=== PATIENT | female | born 1960 | race Caucasian/White ===

== ENCOUNTER → 2016-10-25 | Outpatient (CLI) | payer OTHER, BC ==
[~2016-10-25] MED LIST: ACET500C7 PO; ALBU8.5H3 INH; ARTICHOKE EXTRACT PO; BETA2500 PO; BILB30CA2 PO; CIPR500T3 PO; CYAN1TAB29 SL; DHA OMEGA PEG; FEXO180T72 PO; GRAP50CA3 PO; HORS300C PO; IMMUNE DEFENSE PO; LUTE1CAP3 PO; MAGN1POW15 PO; MISTLETOE PO; OLOP5DRO EACHEYE; OMEG1CAP34 PO; ONDA4TAB10 PO; OXYC-302 PO; QUER1POW PO; RESV100C PO; SAW PALMETTO PO; SELE200T2 PO; TURM500C7 PO; ZINC25CA PO; [UNRECOGNIZED DRUG - OTHER] PO; [UNRECOGNIZED DRUG - OTHER] PO; [UNRECOGNIZED DRUG - OTHER] PO; [UNRECOGNIZED DRUG - OTHER] PO; [UNRECOGNIZED DRUG - OTHER] PO; adrenal support PO; allergy drops SL; green tea extract PO; vitamin b-6 PO
== END | disposition home or self-care (01) ==
LOC: STAR 14:30
PROVIDERS: ATTEND Plastic Surgery
DX: Z01.818 Encounter for other preprocedural examination (principal); C50.911 Malignant neoplasm of unspecified site of right female breast; N65.0 Deformity of reconstructed breast; T85.44XS Capsular contracture of breast implant, sequela; Z85.3 Personal history of malignant neoplasm of breast
CPT/HCPCS: 93005

== ENCOUNTER 2016-10-30 12:21 | Inpatient (IN) | payer OTHER, BC ==
[~2016-10-30] VITALS: Ht 149.9 cm; Wt 53.7 kg
[~2016-10-30 12:21] MED LIST changes: +BACITRACIN 50,000 UNIT ONE; +BUPIVACAINE/PF-EPI 0.25% 1:200K ONE; +CEFAZOLIN 1,000 MG ONE; +GENTAMICIN 80 MG/2 ML ONE; +HEPARIN 5,000 UNITS/ML, 1ML ONE; +LIDOCAINE/MPF 2%-EPI 1:200K, 20 ML ONE; +PAPAVERINE 30 MG/ML, 2ML ONE; +PROTAMINE SULFATE 10 MG/ML, 5ML ONE; +ROPivacaine/PF 0.2%, 10 ML ONE
[2016-10-30 12:53] VITALS: BP 127/85
[2016-10-30] MEDS ORDERED: HYDROmorphone 1 MG/ML, 1ML ONE (13:01)
[2016-10-30] MEDS ORDERED: KETAMINE 10 MG/ML, 20ML ONE (13:01)
[2016-10-30] MEDS ORDERED: MIDAZOLAM 1 MG/ML, 2ML ONE (13:01)
[2016-10-30] MEDS ORDERED: FENTANYL PF 250 MCG/5ML ONE (13:01)
[2016-10-30] MEDS ORDERED: LACTATED RINGERS 1,000 ML IV SCH (13:13)
[2016-10-30] MEDS ORDERED: SODIUM BICARBONATE 1 MEQ/ML, 50ML VIAL ONE (13:29)
[2016-10-30] MEDS ORDERED: LIDOCAINE-MPF 2% ,5ML ONE (13:29)
[2016-10-30] MEDS ORDERED: EPINEPHRINE 1 MG/ML, 1ML ONE (13:30)
[2016-10-30] MEDS ORDERED: ROPIvacaine/PF 0.5%, 20 ML ONE (14:15)
[2016-10-30] MEDS ORDERED: CEFAZOLIN 1,000 MG ONE (14:42)
[2016-10-30] MEDS ORDERED: DEXAMETHASONE 4 MG/ML, 1ML ONE (14:42)
[2016-10-30] MEDS ORDERED: ONDANSETRON 2MG/ML, 2ML ONE (14:42)
[2016-10-30] MEDS ORDERED: PHENYLEPHRINE 10 MG/ML ONE (14:42)
[2016-10-30] MEDS ORDERED: PROPOFOL 10 MG/ML, 50ML ONE (14:42)
[2016-10-30] MEDS ORDERED: ROCURONIUM 10 MG/ML ONE (14:42)
[2016-10-30] MEDS ORDERED: PROPOFOL 10 MG/ML, 20ML ONE (14:42)
[2016-10-30] MEDS ORDERED: SUGAMMADEX 200 MG/2 ML IVPush ONE (15:30)
[2016-10-30] MEDS ORDERED: BUPIVACAINE/PF-EPI 0.25% 1:200K ONE (16:02)
[2016-10-30] MEDS ORDERED: hydrALAzine 20 MG/ML, 1ML IV PRN (16:30)
[2016-10-30] MEDS ORDERED: LABETALOL 5MG/ML, 20ML IV PRN (16:30)
[2016-10-30] MEDS ORDERED: MIDAZOLAM 1 MG/ML, 2ML IV PRN (16:30)
[2016-10-30] MEDS ORDERED: MEPERIDINE/PF 25MG/0.5ML IVPush PRN (16:30)
[2016-10-30] MEDS ORDERED: PROMETHAZINE 25 MG/ML, 1ML IV PRN (16:30)
[2016-10-30] MEDS ORDERED: EPHEDRINE 50 MG/ML, 1ML IVPush PRN (16:30)
[2016-10-30] MEDS ORDERED: ALBUTEROL/IPRATROPIUM 2.5MG/0.5MG, 3 ML NPPB PRN (16:30)
[2016-10-30] MEDS ORDERED: ACETAMINOPHEN 325 MG TABLET PO PRN ×2 (16:30→22:30)
[2016-10-30] MEDS ORDERED: ONDANSETRON 2MG/ML, 2ML IVPush PRN (16:30)
[2016-10-30] MEDS ORDERED: METOCLOPRAMIDE 5 MG/ML, 2ML IV PRN (16:30)
[2016-10-30] MEDS ORDERED: OXYcodone 5 MG/5 ML ORAL.SOL UDC ONE ×2 (19:04→19:52)
[2016-10-30] MEDS: OXYcodone 5 MG/5 ML ORAL.SOL UDC PO PRN ×2 (19:05→19:54)
[2016-10-30] MEDS ORDERED: HYDROmorphone 2 MG/ML, 1ML ONE (19:22)
[2016-10-30] MEDS: HYDROmorphone 1 MG/ML, 1ML IV PRN ×3 (19:25→19:40)
[2016-10-30] MEDS: FENTANYL PF 100 MCG/2ML IV PRN ×2 (19:55→20:15)
[2016-10-30] MEDS ORDERED: ONDANSETRON 2MG/ML, 2ML IV PRN (22:30)
[2016-10-30] MEDS ORDERED: ENOXAPARIN 40 MG/0.4 ML SQ SCH (22:30)
[2016-10-30] MEDS ORDERED: LORazepam 2 MG/ML, 1ML IV PRN (22:30)
[2016-10-30] MEDS ORDERED: ACETAMINOPHEN 650 MG SUPP PR PRN (22:30)
[2016-10-30] MEDS ORDERED: ALBUTEROL SULFATE 2.5 MG/3 ML HHN PRN (22:30)
[2016-10-30] MEDS ORDERED: LORazepam 1MG TABLET PO PRN (22:30)
[2016-10-30] MEDS ORDERED: HYDROmorphone 1 MG/ML, 1ML IV PRN (22:30)
[2016-10-30] MEDS ORDERED: DIPHENHYDRAMINE 25 MG CAPSULE PO PRN (22:30)
[2016-10-30] MEDS ORDERED: DIPHENHYDRAMINE 50 MG/ML, 1ML IV PRN (22:30)
[2016-10-30] MEDS: OXYcodone/APAP 5/325MG TABLET PO PRN ×2 (23:03→23:32)
[2016-10-30] MEDS: CIPROFLOXACIN 500 MG TABLET PO SCH (23:04)
[2016-10-30] MEDS: CEFAZOLIN PMX 1GM/50ML 50 ML IVPB SCH (23:05)
[2016-10-30] MEDS: D5%-LACTATED RINGERS 1,000 ML IV SCH (23:06)
[2016-10-30 23:50] VITALS: BP 110/74
[2016-10-31 01:58] VITALS: BP 106/67
[2016-10-31 02:00] VITALS: BP 106/67
[2016-10-31] MEDS: OXYcodone/APAP 5/325MG TABLET PO PRN ×2 (04:26→09:43)
[2016-10-31 05:28] VITALS: BP 103/67
[2016-10-31 05:29] VITALS: BP 103/67
[2016-10-31 07:32] VITALS: BP 100/69
[2016-10-31 07:33] VITALS: BP 100/69
[2016-10-31] MEDS: CEFAZOLIN PMX 1GM/50ML 50 ML IVPB SCH (07:41)
[2016-10-31] MEDS: D5%-LACTATED RINGERS 1,000 ML IV SCH (08:30)
[2016-10-31] MEDS ORDERED: DOCUSATE 100 MG CAPSULE PO SCH (09:00)
[2016-10-31] MEDS: CIPROFLOXACIN 500 MG TABLET PO SCH (09:00)
== END 2016-10-31 13:00 | disposition home or self-care (01) | DRG 581 ==
LOC: ORIP 12:21 → EDSTATUS 14:00 → 4NOR 14:14 → DCLOUNGE 10-31 12:20
PROVIDERS: ADMIT Plastic Surgery; ATTEND Plastic Surgery
PROC: 0HPU0NZ Removal of Tissue Expander from Left Breast, Open Approach (ICD-10-PCS; 2016-10-30)
PROC: 0HRV0JZ Replacement of Bilateral Breast with Synthetic Substitute, Open Approach (ICD-10-PCS; 2016-10-30)
PROC: 0HPT0NZ Removal of Tissue Expander from Right Breast, Open Approach (ICD-10-PCS; 2016-10-30)
PROC: 0JX60ZZ Transfer Chest Subcutaneous Tissue and Fascia, Open Approach (ICD-10-PCS; principal; 2016-10-30 14:00)
PROC: 0KXF0ZZ Transfer Right Trunk Muscle, Open Approach (ICD-10-PCS; 2016-10-30 14:00)
DX: T85.44XA Capsular contracture of breast implant, initial encounter (principal); J45.909 Unspecified asthma, uncomplicated; Z85.3 Personal history of malignant neoplasm of breast; Z92.3 Personal history of irradiation
CPT/HCPCS: C1789; J0171; J0690; J1100; J1170; J1644; J1650; J2250; J2405; J2704; J2720; J2795; J3010; J3490; J1580; J2370; J2440; J7120; J7121

== ENCOUNTER → 2017-01-24 | Outpatient (CLI) | payer OTHER, BC ==
[~2017-01-24] MED LIST changes: -BACITRACIN 50,000 UNIT ONE; -BUPIVACAINE/PF-EPI 0.25% 1:200K ONE; -CEFAZOLIN 1,000 MG ONE; -GENTAMICIN 80 MG/2 ML ONE; -HEPARIN 5,000 UNITS/ML, 1ML ONE; -LIDOCAINE/MPF 2%-EPI 1:200K, 20 ML ONE; -PAPAVERINE 30 MG/ML, 2ML ONE; -PROTAMINE SULFATE 10 MG/ML, 5ML ONE; -ROPivacaine/PF 0.2%, 10 ML ONE
== END | disposition home or self-care (01) ==
LOC: ROC 09:56
PROVIDERS: ATTEND Radiology Radiation Oncology
DX: C50.211 Malignant neoplasm of upper-inner quadrant of right female breast (principal)
CPT/HCPCS: 99212; G0463

== ENCOUNTER → 2017-07-24 | Outpatient (CLI) | payer OTHER, BC ==
[~2017-07-24] MED LIST changes: -ALBU8.5H3 INH; +ALBU8.5H8 INH; +SELE200T17 PO; -SELE200T2 PO
== END | disposition home or self-care (01) ==
LOC: ROC 08:21
PROVIDERS: ATTEND Radiology Radiation Oncology
DX: C50.911 Malignant neoplasm of unspecified site of right female breast (principal)
CPT/HCPCS: 99213; G0463

== ENCOUNTER → 2018-01-08 | Outpatient (CLI) | payer OTHER, BC | END | disposition home or self-care (01) | LOC: ROC 08:03 | PROVIDERS: ATTEND Radiology Radiation Oncology | DX: C50.211 Malignant neoplasm of upper-inner quadrant of right female breast (principal) | CPT/HCPCS: 99212; G0463 ==

== ENCOUNTER 2018-06-24 12:18 | Emergency (ER) | payer OTHER, BC ==
[~2018-06-24] VITALS: Ht 149.9 cm; Wt 51.2 kg
[2018-06-24 12:57] VITALS: BP 123/86
[2018-06-24 13:10] LABS: ANION GAP 7 mmol/L (5-15); CALCIUM 9.1 mg/dL (8.5-10.1); CHLORIDE 107 mmol/L (98-107); CREATININE 0.69 mg/dL (0.55-1.02)
== END 2018-06-24 13:46 | disposition home or self-care (01) ==
LOC: ED 13:31
DX: E87.6 Hypokalemia (principal); Z00.01 Encounter for general adult medical examination with abnormal findings; Z85.3 Personal history of malignant neoplasm of breast
CPT/HCPCS: 36415; 80048; 93005; 99284

== ENCOUNTER → 2018-07-02 | Outpatient (CLI) | payer OTHER, BC | END | disposition home or self-care (01) | LOC: ROC 07:36 | PROVIDERS: ATTEND Radiology Radiation Oncology | DX: C50.211 Malignant neoplasm of upper-inner quadrant of right female breast (principal) | CPT/HCPCS: 99212; G0463 ==

== ENCOUNTER 2018-08-07 10:26 | Observation (INO) | payer OTHER, BC ==
[~2018-08-07] VITALS: Ht 149.9 cm; Wt 59.0 kg
[2018-08-07 11:05] VITALS: BP 114/77
[2018-08-07] MEDS ORDERED: LACTATED RINGERS 1,000 ML IV SCH ×2 (11:27→16:30)
[2018-08-07] MEDS ORDERED: BACITRACIN 50,000 UNIT ONE (11:29)
[2018-08-07] MEDS ORDERED: OXYcodone IR 5MG TABLET PO ONE (11:30)
[2018-08-07] MEDS ORDERED: GABAPENTIN 300 MG CAPSULE PO ONE (11:30)
[2018-08-07] MEDS ORDERED: DIAZEPAM 5 MG TABLET PO ONE (11:30)
[2018-08-07] MEDS ORDERED: ONDANSETRON ODT 8 MG PO ONE (11:30)
[2018-08-07] MEDS ORDERED: SCOPOLAMINE PATCH, 1.5MG PATCH.TD72 TD ONE (11:30)
[2018-08-07] MEDS ORDERED: ACETAMINOPHEN 500 MG TABLET PO ONE (11:30)
[2018-08-07] MEDS ORDERED: CEFAZOLIN 1,000 MG ONE (11:35)
[2018-08-07] MEDS ORDERED: DEXAMETHASONE 4 MG/ML, 1ML ONE ×2 (11:35)
[2018-08-07] MEDS ORDERED: PROPOFOL 10 MG/ML, 20ML ONE (11:35)
[2018-08-07] MEDS ORDERED: ROCURONIUM 10MG/ML,5ML ONE (11:35)
[2018-08-07] MEDS ORDERED: MIDAZOLAM 1 MG/ML, 2ML ONE (11:38)
[2018-08-07] MEDS ORDERED: PROPOFOL 50 ML ONE (11:38)
[2018-08-07] MEDS ORDERED: FENTANYL PF 250 MCG/5ML ONE (11:39)
[2018-08-07] MEDS ORDERED: BUPIVACAINE/PF 0.5% ONE (12:01)
[2018-08-07] MEDS ORDERED: LIDOCAINE 4%, 4 ML SYR/CANN TP ONE (12:29)
[2018-08-07] MEDS ORDERED: LABETALOL 5MG/ML, 20ML IV PRN (13:00)
[2018-08-07] MEDS ORDERED: METOPROLOL 1 MG/ML, 5ML IV PRN (13:00)
[2018-08-07] MEDS ORDERED: EPHEDRINE 50 MG/ML, 1ML IVPush PRN (13:00)
[2018-08-07] MEDS ORDERED: HYDROmorphone 2 MG/ML, 1ML IVPush PRN (13:00)
[2018-08-07] MEDS ORDERED: DIAZEPAM 5 MG/ML, 2ML IVPush PRN (13:00)
[2018-08-07] MEDS ORDERED: ONDANSETRON 2MG/ML, 2ML IV PRN (13:00)
[2018-08-07] MEDS ORDERED: MEPERIDINE/PF 25MG/0.5ML IVPush PRN (13:00)
[2018-08-07] MEDS ORDERED: hydrALAzine 20 MG/ML, 1ML IV PRN (13:00)
[2018-08-07] MEDS ORDERED: OXYcodone 5 MG/5 ML ORAL.SOL UDC PO PRN (13:00)
[2018-08-07] MEDS ORDERED: PROMETHAZINE 25 MG/ML, 1ML IV PRN (13:00)
[2018-08-07] MEDS ORDERED: ALBUTEROL SULFATE 2.5 MG/3 ML NPPB PRN (13:00)
[2018-08-07] MEDS ORDERED: ONDANSETRON 2MG/ML, 2ML ONE (13:54)
[2018-08-07] MEDS ORDERED: NEOSTIGMINE 1 MG/ML, 10ML ONE (13:54)
[2018-08-07] MEDS ORDERED: GLYCOPYRROLATE 0.4 MG/2 ML, 2ML ONE (13:54)
[2018-08-07] MEDS ORDERED: OXYcodone 5 MG/5 ML ORAL.SOL UDC ONE (14:51)
[2018-08-07] MEDS ORDERED: FENTANYL PF 100 MCG/2ML ONE (14:51)
[2018-08-07] MEDS: FENTANYL PF 100 MCG/2ML IV PRN ×2 (14:56→15:01)
[2018-08-07] MEDS ORDERED: MEPERIDINE/PF 100 MG/ML ONE (16:16)
[2018-08-07] MEDS: MEPERIDINE/PF 50 MG/ML IV PRN ×2 (16:19→16:23)
[2018-08-07] MEDS ORDERED: ONDANSETRON 2MG/ML, 2ML IVPush PRN (16:30)
[2018-08-07] MEDS: CEFAZOLIN PMX 1GM/50ML 50 ML IVPB SCH (20:29)
[2018-08-07 20:51] VITALS: BP 110/72
[2018-08-07] MEDS: OXYcodone/APAP 5/325MG TABLET PO PRN (21:24)
[2018-08-08 00:01] VITALS: BP 120/80
[2018-08-08 00:03] VITALS: BP 106/73
[2018-08-08] MEDS: OXYcodone/APAP 5/325MG TABLET PO PRN ×3 (02:43→11:06)
[2018-08-08 04:23] VITALS: BP 104/70
[2018-08-08] MEDS: CEFAZOLIN PMX 1GM/50ML 50 ML IVPB SCH (04:29)
[2018-08-08 08:41] VITALS: BP 91/56
[2018-08-08] MEDS ORDERED: OXYC-302 PO (11:23)
== END 2018-08-08 11:30 | disposition home or self-care (01) ==
LOC: OUT 10:26 → 4NOR 15:44 → OUT 15:46 → UNDOADMOB 15:47 → 4NOR 15:47 → DCLOUNGE 08-08 11:15
PROVIDERS: ADMIT Plastic Surgery; ATTEND Plastic Surgery
DX: T85.49XA Other mechanical complication of breast prosthesis and implant, initial encounter (principal); Z42.1 Encounter for breast reconstruction following mastectomy
CPT/HCPCS: 19357; 96365; 96366; 96375; C1789; G0378; J0690; J1100; J2175; J2250; J2405; J2704; J2710; J3010; J3490; J7120; Q0162

== ENCOUNTER → 2019-01-01 | Outpatient (CLI) | payer OTHER, BC | END | disposition home or self-care (01) | LOC: ROC 07:45 | PROVIDERS: ATTEND Radiology Radiation Oncology | DX: C50.211 Malignant neoplasm of upper-inner quadrant of right female breast (principal); Z88.3 Allergy status to other anti-infective agents; Z90.12 Acquired absence of left breast and nipple | CPT/HCPCS: 99212; G0463 ==

== ENCOUNTER → 2019-06-29 | Outpatient (CLI) | payer OTHER, BC | END | disposition home or self-care (01) | LOC: ROC 09:51 | PROVIDERS: ATTEND Radiology Radiation Oncology | DX: C50.211 Malignant neoplasm of upper-inner quadrant of right female breast (principal) | CPT/HCPCS: 99212; G0463 ==

== ENCOUNTER 2019-07-03 10:32 | Outpatient (CLI) | payer OTHER, BC ==
[2019-07-03] MEDS ORDERED: OMNIPAQUE 350 MG/ML, 75ML BOTTLE ONE (13:01)
== END 2019-07-03 23:59 | disposition home or self-care (01) ==
LOC: RAD 10:32
PROVIDERS: ATTEND Internal Medicine Hematology & Oncology
DX: M17.0 Bilateral primary osteoarthritis of knee (principal); C50.211 Malignant neoplasm of upper-inner quadrant of right female breast
CPT/HCPCS: 71260; 78306; A9503; Q9967

== ENCOUNTER → 2019-10-19 | Outpatient (CLI) | payer OTHER, BC ==
[~2019-10-19] MED LIST changes: -BETA2500 PO; +[UNRECOGNIZED DRUG - CODE] PO
== END | disposition home or self-care (01) ==
LOC: ROC 07:27
PROVIDERS: ATTEND Radiology Radiation Oncology
DX: C50.211 Malignant neoplasm of upper-inner quadrant of right female breast (principal); K76.89 Other specified diseases of liver
CPT/HCPCS: 99212; G0463

== ENCOUNTER 2020-02-28 23:33 | Observation (INO) | payer OTHER, BC ==
[~2020-02-28] VITALS: Ht 149.9 cm; Wt 53.9 kg
--- NOTE | 2020-02-28 23:35 | NUR ---
BIB EMS W CO SOB AND COUGH X TWO DAYS. HX OF ASTHMA WORSENING WITH AMBIENT SMOKE. REPORTEDLY HAS BEEN USING RESCUE INHALER WITHOUT IMPROVEMENT IN S/S. EMS GAVE SOLUMEDROL, ALBUTEROL, AND DUONEB X2 SIGNALLING AND COMMUNICATIONS ENGINEER WITH SOME IMPROVEMENT. +PRODUCTIVE COUGH WITH YELLOW SPUTUM AND CHEST TIGHTNESS. DENIES FEVER/LE SWELLING OR PAIN PT ARRIVES AWAKE/ALERT, RESPIRATIONS EVEN AND LABORED. SPEAKING IN FULL SENTENCES WITH FREQUENT FORCED INHALATIONS. RA SPO2 >90%, PT REQUESTING O2 FOR SUPPORT. PLACED ON 2L BY NC, SPO2 97%. RR 20'S. DIFFUSE INSP/EXP WHEEZE. NO ACCESSORY MUSCLE USE NOTED. BP/SPO2/ECG MONITORING IN PLACE. SINUS TACH ON MONITOR. ERP AT BEDSIDE FOR INITIAL EVAL.
[2020-02-29] MEDS ORDERED: AZITHROMYCIN 500 MG in SODIUM CHLORIDE 0.9% 250 ML IVPB ONE
[2020-02-29 00:05] LABS: BASOPHILS # (AUTO) 0.03 x10^3/uL (0-0.1); BASOPHILS % (AUTO) 0 % (0-1); EOSINOPHILS # (AUTO) 0.23 x10^3/uL (0-0.4); EOSINOPHILS % (AUTO) 3 % (1-7); LYMPHOCYTES % (AUTO) 23 % (22-44); MD NO; MEAN CORPUSCULAR HEMOGLOBIN 26.9 pg (27.0-34.8); MEAN CORPUSCULAR HGB CONC 31.9 g/dL (32.4-35.8); MEAN CORPUSCULAR VOLUME 84.3 fL (80-100); MEAN PLATELET VOLUME 8.7 fL (7.4-10.4); MONOCYTES # (AUTO) 0.77 x10^3/uL (0.2-0.8); MONOCYTES % (AUTO) 8 % (2-9); NEUTROPHILS # (AUTO) 6.13 x10^3/uL (1.8-6.8); NEUTROPHILS % (AUTO) 66 % (42-75); PLATELET COUNT 204 x10^3/uL (130-400); RED BLOOD COUNT 5.19 x10^6/uL (3.82-5.3); RED CELL DISTRIBUTION WIDTH 13.9 % (9.6-15.2)
[2020-02-29 00:14] LABS: ALBUMIN 3.9 g/dL (3.4-5.0); ANION GAP 6 mmol/L (5-15); CHLORIDE 110 mmol/L (98-107)
--- NOTE | 2020-02-29 00:27 | NUR ---
ABX INITIATED. BC X2 DRAWN PRIOR TO ADMIN. PT SPEAKING IN FULL SENTENCES W/ INFREQUENT DRY, STRONG COUGH. SPO2 >90% ON 2L BY NC.
[2020-02-29] MEDS ORDERED: ALBUTEROL SULFATE 2.5 MG/3 ML ONE (00:57)
[2020-02-29] MEDS ORDERED: ALBUTEROL SULFATE 2.5 MG/3 ML NPPB ONE (01:00)
--- NOTE | 2020-02-29 01:03 | NUR ---
report of pt from hardeep caldwell and assuming care of pt at this time. pt ambulates to restroom with steady gait.
[2020-02-29] MEDS ORDERED: ALBUTEROL HFA 90 MCG/SPRAY INH SCH (03:30)
--- NOTE | 2020-02-29 03:43 | NUR ---
REPORT OF PT TO MIGUE CARBAJAL. ALL QUESTIONS ANSWERED.
[2020-02-29] MEDS ORDERED: DOCUSATE 100 MG CAPSULE PO PRN (04:00)
[2020-02-29] MEDS ORDERED: HEPARIN 5,000 UNITS/ML, 1ML SQ SCH (04:00)
[2020-02-29] MEDS ORDERED: GUAIFENESIN/DM 200-20MG, 10ML UDC PO PRN (04:00)
[2020-02-29] MEDS ORDERED: POTASSIUM CHLORIDE 20 MEQ TAB.ER.PRT PO ONE (04:00)
[2020-02-29] MEDS ORDERED: ACETAMINOPHEN 325 MG TABLET PO PRN (04:00)
[2020-02-29 04:04] VITALS: BP 110/72
[2020-02-29] MEDS ORDERED: ALBUTEROL MC SCH (05:00)
[2020-02-29] MEDS: methylPREDNISolone SOD SUCC 40 MG/ML IVPush SCH ×2 (05:02→10:32)
[2020-02-29 05:24] VITALS: BP 122/80
[2020-02-29] MEDS: ALBUTEROL HFA 90 MCG/SPRAY INH SCH ×3 (05:30→10:00)
[2020-02-29 07:00] VITALS: BP 115/73
[2020-02-29] MEDS ORDERED: AZITHROMYCIN 250 MG TABLET PO SCH (09:00)
[2020-02-29] MEDS ORDERED: PRED20TA PO (09:43)
== END 2020-02-29 11:00 | disposition home or self-care (01) ==
LOC: ED 02-29 03:53 → EDIP 02-29 04:00 → INTOOBSV 02-29 04:00 → 3N 02-29 04:01 → DCLOUNGE 02-29 10:53
PROVIDERS: ADMIT Family Medicine; ATTEND Internal Medicine Infectious Disease
DX: J96.01 Acute respiratory failure with hypoxia (principal); J45.901 Unspecified asthma with (acute) exacerbation; C50.919 Malignant neoplasm of unspecified site of unspecified female breast; E87.6 Hypokalemia; Z96.653 Presence of artificial knee joint, bilateral; Z85.3 Personal history of malignant neoplasm of breast; Z90.13 Acquired absence of bilateral breasts and nipples; Z79.899 Other long term (current) drug therapy
CPT/HCPCS: 36415; 71045; 80048; 82040; 83735; 84145; 85025; 87040; 87070; 87205; 93005; 96365; 96372; 96375; 96376; 99285; G0378; J0456; J1644; J2920; J7050; J7613